=== PATIENT | female | born 1955 | race Caucasian/White ===

== ENCOUNTER → 2020-08-01 | Outpatient (CLI) | payer OTHER ==
[~2020-08-01] MED LIST: ABILIFY10 MG PO; ALPRAZOLAM XR3 MG PO; AMPHETAMINE SAL20 M1 PO; ASPIRIN EC81 M1 PO; LAMOTRIGINE150 MG PO; LEXAPRO20 MG PO; LIPITOR10 MG PO; MULTI VITAMIN1 EACH PO; PLAVIX 75 MG TA75 MG PO; VITAMIN B-12100 MC1 IM
== END ==
LOC: LAB 14:25
PROVIDERS: ATTEND Internal Medicine Gastroenterology
DX: Z01.812 Encounter for preprocedural laboratory examination (principal); Z20.822 Contact with and (suspected) exposure to COVID-19

== ENCOUNTER → 2020-08-06 | Outpatient (CLI) | payer OTHER ==
[~2020-08-06] VITALS: Ht 157.5 cm; Wt 81.6 kg
--- NOTE | 2020-08-08 15:08 | PATH ---
[facility] [address] [place] [address] PATHOLOGY RPT PROCEDURE Name: SALAZAR MINSABA Russo Room #: REG BOOGIE Salazar#: [id number] Admission: 08/06/20 Date of : 55 Discharge: Report #: [id number] Path Case #: [id number] [facility] Accession Number: [id number] . 01 Material submitted: . esophagus - BIOPSY OF RANDOM ESOPHAGEAL . 01 Clinical history: . DTS/EGD/WITH DILATION/DYSPHAGIA NORMAL EGD STATUS POST BIOPSIES AND DILATION RULE OUT EOSINOPHILIC ESOPHAGITIS . 02 Diagnosis: Squamous mucosa, random esophageal R/O eosinophilic esophagitis, endoscopic biopsy: - Mild active esophagitis. - No increase in intraepithelial eosinophils. - Negative for intestinal metaplasia or dysplasia. (I[facility]:ashley; 08/08/2020) QMS 08/08/2020 1336 Local . 02 Electronically signed: . Marcia Chaudhry MD, Pathologist NPI- [id number] . 01 Gross description: . Received in formalin labeled "Nena Mccullough and biopsy esophageal-rule out eosinophilic esophagitis". Received are 4 leyva-paul soft tissue fragments ranging from 0.2-0.3 cm. Specimen is entirely submitted in cassette A1.([facility]; 08/07/2020) [facility] 08/08/2020 1335 Local . 02 Pathologist provided ICD-10: K20.90 . 02 CPT . 971588 Specimen Comment: A courtesy copy of this report has been sent to [phone] Specimen Comment: [phone] Specimen Comment: Report sent to / DR PEGUERO Performed at: [address] [id number] MD nAdrew Azevedo MD Phone: [phone] Performed at: 02 [facility] [address] [place] [address] PATHOLOGY RPT PROCEDURE Name: NENA MIN Room #: REG [facility].#: [id number] Admission: 08/06/20 Date of : 55 Discharge: Report #: [id number] Path Case #: [id number] [address] [place] [address] [id number] MD Marcia Chaudhry MD Phone: [phone]
== END | disposition home or self-care (01) ==
LOC: GI 08:47
PROVIDERS: ATTEND Internal Medicine Gastroenterology
DX: R13.10 Dysphagia, unspecified (principal); K20.90 Esophagitis, unspecified without bleeding; E78.00 Pure hypercholesterolemia, unspecified; F32.9 Major depressive disorder, single episode, unspecified; F41.9 Anxiety disorder, unspecified; F17.210 Nicotine dependence, cigarettes, uncomplicated; Z86.010 Personal history of colon polyps; Z86.73 Personal history of transient ischemic attack (TIA), and cerebral infarction without residual deficits; Z98.890 Other specified postprocedural states; Z79.899 Other long term (current) drug therapy
CPT/HCPCS: 62110; 62900